=== PATIENT | male | born 1970 | race Caucasian/White ===

== ENCOUNTER → 2018-12-24 | Outpatient (CLI) | payer BC, OTHER ==
--- NOTE | 2018-12-24 11:44 | REP ---
MAXILLOFACIAL CT WITHOUT CONTRAST: HISTORY: Chronic sphenoid sinusitis. 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 Mild mucosal thickening is present in the left maxillary sinus. Minimal mucosal thickening is present in the right maxillary and left ethmoid sinuses. The remaining sinuses are clear. Mucosal thickening involves the osteomeatal units. The middle and inferior nasal turbinates are partially paradoxical. There is very minimal deviation of the nasal septum to the right. A small spur is present arising from the right side of the nasal septum. The cribriform plate, medial fraga of the orbits, and optic canals are intact. There is aeration of the right anterior clinoid process. The carotid canals form a segment of the posterolateral fraga of the sphenoid sinus. The left sphenoid sinus septum inserts into the left internal carotid canal wall. IMPRESSION: Sinus mucosal thickening as described above. Electronically Signed by Guy Moran MD 12/24/2018 11:49 A
== END ==
LOC: M RAD 10:43
PROVIDERS: ATTEND Otolaryngology
DX: J32.3 Chronic sphenoidal sinusitis (principal)

== ENCOUNTER → 2019-01-06 | Outpatient (CLI) | payer BC, OTHER ==
[2019-01-06 14:01] LABS: BASO % 0.3 % (0.0-1.0); EOS # 0.1 10^3/uL (0.0-0.50); EOS % 0.8 % (0.0-3.0); HEMATOCRIT 44.9 % (42.0-52.0); HEMOGLOBIN 14.7 g/dl (13.5-17.5); LYMPH # 1.3 10^3/uL (1.5-4.5); LYMPH % 22.5 % (24.0-44.0); MEAN CORPUSCULAR HEMOGLOBIN 27.2 pg (27.0-33.0); MEAN CORPUSCULAR HGB CONC 32.7 g/dl (32.0-36.5); MONO # 0.4 10^3/uL (0.0-0.8); MONO % 7.1 % (0.0-5.0); NEUTROPHILS # 4.1 10^3/uL (1.8-7.7); NEUTROPHILS % 69.1 % (36.0-66.0); PLATELET COUNT, AUTOMATED 227 10^3/uL (150-450); RED BLOOD COUNT 5.41 10^6/uL (4.30-6.10); WHITE BLOOD COUNT 5.9 10^3/uL (4.0-10.0)
[2019-01-06 14:31] LABS: IMMUNOGLOBULIN E 5.3 IU/ML (<100); IMMUNOGLOBULIN G 1040 MG/DL (681-1648); IMMUNOGLOBULIN M 41.8 MG/DL (40-230)
[2019-01-07 11:39] LABS: RUBELLA IgG QUALITATIVE IMMUNE (IMMUNE)
[2019-01-09 00:06] LABS: ANTI TETANUS ANTIBODY 2.76 IU/mL (<0.10)
== END ==
LOC: M SMT 11:44
PROVIDERS: ATTEND Allergy & Immunology Allergy
DX: D84.9 Immunodeficiency, unspecified (principal); J31.0 Chronic rhinitis

== ENCOUNTER → 2025-09-06 | Day surgery (SDC) | payer BC ==
[~2025-09-06] VITALS: Ht 185.4 cm; Wt 94.9 kg
[~2025-09-06] MED LIST: FINA5TAB2; LIDOCAINE 2% 100 MG/5 ML SDV (FOR ANES.) As Ordered ONE
[2025-09-06 11:00] VITALS: TEMP 98.7
[2025-09-06 11:22] VITALS: BP 123/79; O2SAT 100
== END | disposition home or self-care (01) ==
LOC: M OPP 10:00
PROVIDERS: ATTEND Surgery
DX: Z12.11 Encounter for screening for malignant neoplasm of colon (principal); K64.0 First degree hemorrhoids; Z88.0 Allergy status to penicillin